=== PATIENT | female | born 1960 | race Caucasian/White ===

== ENCOUNTER 2018-08-31 14:52 | Emergency (ER) | payer MEDICAID ==
[~2018-08-31] VITALS: Ht 152.4 cm; Wt 56.8 kg
[2018-08-31] MEDS ORDERED: ibuprofen 200mg tablet PO ONE (15:10)
[2018-08-31 15:50] VITALS: BP 143/86
[2018-08-31] MEDS ORDERED: HYDR-4383 PO (16:15)
[2018-08-31] MEDS ORDERED: IBUP-1985 PO (16:15)
== END 2018-08-31 17:35 | disposition home or self-care (01) ==
LOC: ER 14:52
DX: S82.831A Other fracture of upper and lower end of right fibula, initial encounter for closed fracture (principal); S82.141A Displaced bicondylar fracture of right tibia, initial encounter for closed fracture; S82.121A Displaced fracture of lateral condyle of right tibia, initial encounter for closed fracture; F12.90 Cannabis use, unspecified, uncomplicated; F15.90 Other stimulant use, unspecified, uncomplicated; Z98.890 Other specified postprocedural states; Z88.2 Allergy status to sulfonamides; V80.010A Animal-rider injured by fall from or being thrown from horse in noncollision accident, initial encounter; Y93.52 Activity, horseback riding; Y92.89 Other specified places as the place of occurrence of the external cause; Y99.9 Unspecified external cause status
CPT/HCPCS: 29505; 73560; 73590; 73700; 99283; 99284

== ENCOUNTER 2018-09-05 11:47 | Outpatient (CLI) | payer MEDICAID ==
[~2018-09-05 11:47] MED LIST: HYDR-4383 PO; IBUP-1985 PO
[2018-09-05 11:49] VITALS: BP 135/74
[2018-09-05 15:04] VITALS: BP 135/74
== END 2018-09-05 13:23 | disposition home or self-care (01) ==
LOC: ORTHO 11:47
PROVIDERS: ATTEND Nurse Practitioner Family
DX: S82.141A Displaced bicondylar fracture of right tibia, initial encounter for closed fracture (principal); F12.90 Cannabis use, unspecified, uncomplicated; F15.90 Other stimulant use, unspecified, uncomplicated; F17.210 Nicotine dependence, cigarettes, uncomplicated; I25.2 Old myocardial infarction; F32.9 Major depressive disorder, single episode, unspecified; G89.29 Other chronic pain; X58.XXXA Exposure to other specified factors, initial encounter; Y93.89 Activity, other specified; Y92.89 Other specified places as the place of occurrence of the external cause; Y99.8 Other external cause status
CPT/HCPCS: 99215

== ENCOUNTER 2018-09-11 13:20 | Inpatient (IN) | payer MEDICAID | END 2018-09-14 13:23 | LOC: PAS 13:20 → ORTHO 4S 17:21 | DX: S82.141A Displaced bicondylar fracture of right tibia, initial encounter for closed fracture (principal) ==

== ENCOUNTER 2018-09-25 14:54 | Outpatient (CLI) | payer MEDICAID ==
[2018-09-25 14:54] VITALS: BP 133/78
[~2018-09-25 14:54] MED LIST changes: -HYDR-4383 PO; -IBUP-1985 PO; +NO HOME MEDS
== END 2018-09-25 15:46 | disposition home or self-care (01) ==
LOC: ORTHO 14:54
PROVIDERS: ATTEND Nurse Practitioner Family
DX: S82.141G Displaced bicondylar fracture of right tibia, subsequent encounter for closed fracture with delayed healing (principal); F12.90 Cannabis use, unspecified, uncomplicated; F15.90 Other stimulant use, unspecified, uncomplicated; F17.210 Nicotine dependence, cigarettes, uncomplicated; F41.9 Anxiety disorder, unspecified; Z72.89 Other problems related to lifestyle; X58.XXXD Exposure to other specified factors, subsequent encounter
CPT/HCPCS: 73560; 99213

== ENCOUNTER 2018-10-10 11:19 | Outpatient (CLI) | payer MEDICAID ==
[2018-10-10 11:11] VITALS: BP 128/85
== END 2018-10-10 12:10 ==
LOC: ORTHO 11:19
PROVIDERS: ATTEND Nurse Practitioner Family
DX: S82.141G Displaced bicondylar fracture of right tibia, subsequent encounter for closed fracture with delayed healing (principal); Y93.52 Activity, horseback riding; V80.010D Animal-rider injured by fall from or being thrown from horse in noncollision accident, subsequent encounter; Y92.89 Other specified places as the place of occurrence of the external cause
CPT/HCPCS: 73560; G0463; 99213

== ENCOUNTER 2018-10-29 10:57 | Outpatient (CLI) | payer MEDICAID ==
[2018-10-29 11:02] VITALS: BP 124/74
== END 2018-10-29 11:52 | disposition home or self-care (01) ==
LOC: ORTHO 10:57
PROVIDERS: ATTEND Nurse Practitioner Family
DX: S82.141G Displaced bicondylar fracture of right tibia, subsequent encounter for closed fracture with delayed healing (principal); F17.210 Nicotine dependence, cigarettes, uncomplicated; Z88.2 Allergy status to sulfonamides; X58.XXXD Exposure to other specified factors, subsequent encounter
CPT/HCPCS: 73560; 99213

== ENCOUNTER 2018-11-25 09:30 | Outpatient (CLI) | payer MEDICAID ==
[2018-11-25 09:28] VITALS: BP 120/77
== END 2018-11-25 10:07 | disposition home or self-care (01) ==
LOC: ORTHO 09:30
PROVIDERS: ATTEND Nurse Practitioner Family
DX: S82.141D Displaced bicondylar fracture of right tibia, subsequent encounter for closed fracture with routine healing (principal); F17.210 Nicotine dependence, cigarettes, uncomplicated; Z98.890 Other specified postprocedural states; Z88.2 Allergy status to sulfonamides; V80.010D Animal-rider injured by fall from or being thrown from horse in noncollision accident, subsequent encounter
CPT/HCPCS: 73560; 99213

== ENCOUNTER 2018-12-18 14:10 | Outpatient (CLI) | payer MEDICAID | END 2018-12-18 14:58 | disposition home or self-care (01) | LOC: ORTHO 14:10 | PROVIDERS: ATTEND Orthopaedic Surgery | DX: S82.141D Displaced bicondylar fracture of right tibia, subsequent encounter for closed fracture with routine healing (principal); X58.XXXD Exposure to other specified factors, subsequent encounter | CPT/HCPCS: 73564; 99213 ==

== ENCOUNTER → 2019-01-30 | Outpatient (CLI) | payer MEDICAID ==
[2019-01-30 11:43] VITALS: BP 110/65
== END | disposition home or self-care (01) ==
LOC: ORTHO 11:41
PROVIDERS: ATTEND Orthopaedic Surgery
DX: S82.141D Displaced bicondylar fracture of right tibia, subsequent encounter for closed fracture with routine healing (principal); F17.200 Nicotine dependence, unspecified, uncomplicated; X58.XXXD Exposure to other specified factors, subsequent encounter
CPT/HCPCS: 73560; 99213

== ENCOUNTER 2021-08-10 20:20 | Emergency (ER) | payer MEDICAID ==
[~2021-08-10] VITALS: Ht 152.4 cm; Wt 54.5 kg
[~2021-08-10 20:20] MED LIST changes: +LIDOcaine 1% W/epiNEPHrine 1:100,000 20ml vial ONE
[2021-08-10 20:32] VITALS: BP 120/81
[2021-08-10] MEDS ORDERED: TETanus/Pertussis (Acell)/Diphther VAC/PF (Tdap-Adult) 0.5ml syringe IMVAC ONE (22:35)
[2021-08-10] MEDS ORDERED: LIDOcaine 1% W/epiNEPHrine 1:200,000 10ml vial IJ ONE (22:35)
[2021-08-10] MEDS ORDERED: DOXY150T5 PO (23:03)
[2021-08-10] MEDS ORDERED: DOXYCYCLINE 100MG CAPSULE PO STA (23:04)
== END 2021-08-10 23:41 | disposition home or self-care (01) ==
LOC: ER 20:20
DX: L02.212 Cutaneous abscess of back [any part, except buttock and flank] (principal); F41.9 Anxiety disorder, unspecified; F32.9 Major depressive disorder, single episode, unspecified; G89.29 Other chronic pain; M54.2 Cervicalgia; Z88.2 Allergy status to sulfonamides
CPT/HCPCS: 10060; 90471; 90715; 99283; J3490

== ENCOUNTER 2022-03-05 12:39 | Emergency (ER) | payer MEDICAID ==
[~2022-03-05] VITALS: Ht 152.4 cm; Wt 56.8 kg
[~2022-03-05 12:39] MED LIST changes: -LIDOcaine 1% W/epiNEPHrine 1:100,000 20ml vial ONE
[2022-03-05 12:45] VITALS: BP 159/90
[2022-03-05] MEDS ORDERED: dexamethasone sod phosphate 10mg/ml inj IM STA (14:38)
[2022-03-05] MEDS ORDERED: ketorolac tromethamine 15mg/ml inj. IM ONE (14:40)
[2022-03-05] MEDS ORDERED: CYCL-1 PO (14:41)
[2022-03-05] MEDS ORDERED: IBUP-1984 PO (14:41)
== END 2022-03-05 15:13 | disposition home or self-care (01) ==
LOC: ER 12:40
DX: M54.50 Low back pain, unspecified (principal); F41.9 Anxiety disorder, unspecified; F32.A Depression, unspecified; Z88.2 Allergy status to sulfonamides
CPT/HCPCS: 96372; 99284; J1100; J1885

== ENCOUNTER 2023-02-09 20:42 | Emergency (ER) | payer MEDICAID ==
[~2023-02-09] VITALS: Ht 152.4 cm; Wt 56.8 kg
[~2023-02-09 20:42] MED LIST changes: +CYCL-1 PO
[2023-02-09] MEDS ORDERED: normal saline 1000ML IV soln IVB ONE (21:35)
[2023-02-09] MEDS ORDERED: ondansetron 4mg rapidly disintigrating tab PO ONE (21:35)
[2023-02-09 21:56] LABS: BASOPHILS % (AUTO) 0.4 % (0-1); EOSINOPHILS # (AUTO) 0.1 X10'3 (0-0.9); EOSINOPHILS % (AUTO) 2.1 % (0-6); HEMATOCRIT 44.3 % (35.0-45.0); HEMOGLOBIN 14.5 g/dl (12.0-16.0); LYMPHOCYTES # (AUTO) 1.4 X10'3 (1.1-4.8); LYMPHOCYTES % (AUTO) 19.1 % (21-51); MEAN CORPUSCULAR HEMOGLOBIN 29.8 PG (27.0-31.0); MEAN CORPUSCULAR HGB CONC 32.8 g/dL (33.0-36.5); MEAN CORPUSCULAR VOLUME 90.6 FL (78-98); MONOCYTES # (AUTO) 0.5 X10'3 (0-0.9); MONOCYTES % (AUTO) 7.3 % (2-12); NEUTROPHILS % (AUTO) 71.1 % (42-75); PLATELET COUNT 254 X10'3 (140-440); RED BLOOD COUNT 4.88 X10'6 (4.20-5.60); RED CELL DISTRIBUTION WIDTH 13.5 % (11.5-14.5); WHITE BLOOD COUNT 7.1 X10'3 (4.5-11.0)
[2023-02-09 22:05] LABS: ALANINE AMINOTRANSFERASE 19 U/L (12-78); ALBUMIN 3.8 G/DL (3.4-5.0); ALKALINE PHOSPHATASE 91 IU/L (46-116); ANION GAP 8 (8-16); ASPARTATE AMINO TRANSFERASE 23 U/L (10-37); BILIRUBIN,TOTAL 0.4 MG/DL (0.1-1.0); BLOOD UREA NITROGEN 13 MG/DL (7-18); BUN/CREATININE RATIO 15.3 (10.0-20.0); CALCIUM 9.3 MG/DL (8.5-10.1); CHLORIDE 103 MMOL/L (99-107); CREATININE 0.85 MG/DL (0.40-0.90); GLUCOSE 85 MG/DL (70-104); LIPASE 132 U/L (73-393); POTASSIUM 3.8 MMOL/L (3.5-5.1); SODIUM 139 MMOL/L (135-145); TOTAL CARBON DIOXIDE 28.2 MMOL/L (24-32); TOTAL PROTEIN 7.6 G/DL (6.4-8.2); eGFR 68 ML/MIN
[2023-02-09] MEDS ORDERED: ONDA4TAB12 PO (22:10)
[2023-02-09 22:20] VITALS: BP 122/69
--- NOTE | 2023-02-09 22:26 | NUR ---
Pt states that her nausea has resolved and her headache has improved.
== END 2023-02-09 22:53 | disposition home or self-care (01) ==
LOC: ER 20:43
DX: R11.2 Nausea with vomiting, unspecified (principal); F15.10 Other stimulant abuse, uncomplicated; G89.29 Other chronic pain; M54.9 Dorsalgia, unspecified; F31.9 Bipolar disorder, unspecified; Z86.14 Personal history of Methicillin resistant Staphylococcus aureus infection; Z88.2 Allergy status to sulfonamides; Z79.899 Other long term (current) drug therapy
CPT/HCPCS: 36415; 80053; 83690; 85025; 96360; 99283; J7030

== ENCOUNTER 2025-01-13 19:17 | Emergency (ER) | payer MEDICAID ==
[~2025-01-13] VITALS: Ht 152.4 cm; Wt 57.5 kg
[~2025-01-13 19:17] MED LIST changes: +ONDA-243 PO
[2025-01-13] MEDS: LIDOcaine 1% W/epiNEPHrine 1:100,000 20ml vial IJ ONE (22:10)
[2025-01-13] MEDS: TETanus/Pertussis (Acell)/Diphther VAC/PF (Tdap-Adult) 0.5ml syringe IMVAC ONE (22:11)
[2025-01-13 22:24] VITALS: PULSE 109; RESP 16; O2SAT 100
--- NOTE | 2025-01-13 22:28 | Physician Documentation ---
History of Present Illness ~ Chief Complaint: Laceration Stated Complaint: LEFT HAND FINGER LAC Time Seen by MD: 21:10 Primary Medical Doctor: VIKRAM Mejia HPI This 64-year-old female presents with lacerations to her 2nd and 3rd fingers from a hedge clipper earlier today, patient reports the blade grazed her fingers causing shallow lacerations to 2nd and 3rd fingers. Patient reports he does not know when her last tetanus shot is and reports that this is the primary reason for her visit as she feels that lacerations do not need stitches. Tetanus Within 5 Years: Yes Medication Reconciliation Allergies: Coded Allergies: Sulfa (Sulfonamide Antibiotics) (Verified Allergy, Intermediate, Breakout, 01/13/25) Scheduled Cephalexin*Monohydrate* (Keflex*), 1 CAP PO QID Cyclobenzaprine* (Cyclobenzaprine*), 1 TAB PO Q8H ONDANSETRON ODT 4mg tablet (Ondansetron Odt), 1-2 TABLET PO Q6H Miscellaneous Medications Home Med List (No Home Medications), (Reported) Past Medical History Past Medical History: Intracerebral Hemorrahage, Pneumonia, Hepatitis A, Hepatitis B, Chronic Back Pain, Psoriasis, [place], MRSA Abscess, Anxiety, Depression Past Surgical History: Patient History: ([place]) Myocardial infarction FATHER, Onset:55 Alcohol Use: None Drug Use: none Lives with: S/O Lives In: Home Occupation: employed Review of Systems ROS Lacerations to 2nd and 3rd finger of left hand as stated above in the HPI, otherwise all systems are reviewed and negative. Physical Exam Vital Signs: Temperature: 98.8, Source: Oral, Heart Rate: 109, Respiratory Rate: 16, BP: 142/84, Pulse Oximetry: 100, Weight: 57.550 Oxygen Flow Rate: 0 Physical Exam VITALS: Reviewed and as above. GENERAL: Alert, nontoxic appearing, no apparent distress. RESPIRATORY: No increased work of breathing, no respiratory distress, speaking in full clear sentences SKIN: 1 cm shallow laceration to 2nd left finger, 2 cm shallow laceration to 3rd left finger Procedures Laceration/Wound Repair Laceration #1: Location: Left 2nd finger Length (cm): 1 Anesthesia: Lidocaine w/ Epi, other (Topically applied) Volume Anesthetic (mls): 5 Prep: irrigated by nurse Margins: revised Foreign Body: not identified Repaired: skin Wound Repaired With: Dermabond Tolerated Procedure Well?: yes, no complications Laceration #2: Location: Left 3rd finger Length (cm): 2 Anesthesia: Lidocaine w/ Epi, other (Topically applied) Prep: irrigated by nurse Debrided: minimal Margins: revised Foreign Body: not identified Repaired: skin Wound Repaired With: Dermabond Tolerated Procedure Well?: yes, no complications Progress Results/Orders Results/Orders Orders - SOREN BOWSER [employer]AND STRATEGIST Dermabond To Bedside (01/13/25 21:38) Completed Orders - SOREN BOWSERP Tetanus/Pertuss/Diph Acell/Pf (Boostrix (01/13/25 21:40) Lidocaine 1% W/Epi 1:100,000 (Xylocaine (01/13/25 21:40) Medications Received in ER Medications (Trade) Dose Ordered Sig/Sarai Route PRN Reason Start Time Stop Time Status Last Admin Dose Admin (Xylocaine 1%-EPI 1:100,000) Physician to administ... ONCE ONCE IJ 01/13/25 21:40 01/13/25 21:52 DC 01/13/25 22:10 20 ML (Boostrix vaccine syringe) 0.5 ml ONCE ONCE IMVAC 01/13/25 21:40 01/13/25 21:41 DC 01/13/25 22:11 0.5 ML Vital Signs 01/13/25 01/13/25 01/13/25 19:33 22:24 22:59 Temp 98.8 98.6 Pulse 97 109 92 Resp 15 16 18 B/P (MAP) 142/84 140/80 Pulse Ox 99 100 98 O2 Flow Rate 0 Medical Decision Making Findings This 64-year-old female presented with lacerations to her left 2nd and 3rd fingers, lacerations were shallow on exam and well approximated without intervention however the laceration to the 3rd finger was felt to have had benefit from sutures however patient declined this, patient was offered the option of Dermabond which she accepted and lacerations to both fingers were successfully revised with Dermabond after the area was anesthetized topically by soaking fingers in 1% lidocaine with epinephrine. Patient's tetanus shot was updated. Otherwise patient's physical exam was benign and she was appropriate for outpatient follow up. Patient provided home care instructions and return to care precautions which she verbalized understanding of. Differential Dx:Considerations: Include: Abrasion, Avulsion, Fracture, Neurovascular injury, Retained foreign body Departure Time of Disposition: 22:47 Disposition: 01 HOME / SELF CARE / HOMELESS Impression: Primary Impression: Laceration Condition: Improved Discharge Instructions: Laceration Care (Skin Glue) Additional Instructions: Keep the area clean and dry, do not allow chemicals including lotions or ointments to contact the skin glue as it can break it down causing the wound to open back up. Please take the antibiotics as prescribed. Please follow up with your primary care provider in the next few days. Please return to the emergency department for any new or worsening concerning symptoms including but not limited to worsening pain or swelling to the area, drainage from the area, or if you develop a fever. Referrals: NO PRIMARY CARE PROVIDER (PCP) Prescriptions Cephalexin*Monohydrate* (Keflex*) 500 Mg Capsule 1 CAP PO QID for 5 Days, #20 CAP Prov: SOREN BOWSER 01/13/25 Education Educated: Patient Educated regarding: diagnosis, treatment, prognosis, need for follow up Signature Scribe Signature: No scribe Attestation: The note accurately reflects work and decisions made by me.KAY Watson 01/14/25 03:38 SOREN BOWSER January 13, 2025 22:28
[2025-01-13] MEDS ORDERED: CEPH-585 PO (22:47)
[2025-01-13 22:59] VITALS: BP 140/80; PULSE 92; RESP 18; TEMP 98.6; O2SAT 98
== END 2025-01-13 23:00 | disposition home or self-care (01) ==
LOC: ER 19:18
DX: S61.211A Laceration without foreign body of left index finger without damage to nail, initial encounter (principal); S61.213A Laceration without foreign body of left middle finger without damage to nail, initial encounter; Z88.2 Allergy status to sulfonamides; W45.8XXA Other foreign body or object entering through skin, initial encounter; Y93.89 Activity, other specified; Y92.89 Other specified places as the place of occurrence of the external cause; Y99.8 Other external cause status
CPT/HCPCS: 12002; 90471; 90715; 99283; J3490; A6449